=== PATIENT | male | born 1985 | race Caucasian/White ===

== ENCOUNTER 2017-12-10 05:07 | Emergency (ER) | payer BC, OTHER ==
[2017-12-10] MEDS ORDERED: DELTASONE 20 MG PO ONE (05:26)
[2017-12-10] MEDS ORDERED: TYLENOL 325 MG PO STA ×2 (05:26→05:41)
[2017-12-10] MEDS ORDERED: TYLENOL 325 MG ONE (05:33)
[2017-12-10] MEDS ORDERED: DELTASONE 20 MG ONE (05:33)
--- NOTE | 2017-12-10 05:33 | ERPHSYRPT ---
- History of Present Illness Time Seen by Provider: 12/10/17 05:20 Source: patient Exam Limitations: clinical condition Patient Subjective Stated Complaint: pt states he has a sore throat since . states he has increased pain since starting antibiotic Triage Nursing Assessment: pt alert and oriented, answers questions approp. pt ambulatory with steady gait noted, respriations nonlabored with lungs cta. redness noted to throat. tenderness to lt side of neck with light palpation. Physician History: PATIENT COMPLAINS OF BEING DIAGNOSED AND TREATED FOR STREP PHARYNGITIS WITH ANTIBIOTIC AUGMENTIN 875MG TWICE DAILY FOR 3 DAYS. STATES HIS SORETHROAT IS WORSE, PAINFUL, AND HAS LEFT EARACHE. DENIES COUGH, FEVER,CHILLS. Timing/Duration: gradual onset Severity: severe ENT Location: ear (L), throat Prearrival Treatment: prescription meds Associated Symptoms: ear pain (L), swollen glands Allergies/Adverse Reactions: No Known Drug Allergies Allergy (Verified 10/04/12 22:21) Home Medications: Amox Tr/Potass Clav. 875 mg [Augmentin 875-125 Tablet] 1 tab PO BID [History] Hx Tetanus, Diphtheria Vaccination/Date Given: Yes Hx Influenza Vaccination/Date Given: No Hx Pneumococcal Vaccination/Date Given: No Immunizations Up to Date: Yes - Review of Systems Constitutional: No Symptoms, No Fever, No Chills Eyes: No Symptoms Ears, Nose, & Throat: Ear Pain, Painful Swallowing Respiratory: No Symptoms, No Cough, No Dyspnea Cardiac: No Symptoms, No Chest Pain, No Edema, No Syncope Abdominal/Gastrointestinal: No Abdominal Pain, No Nausea, No Vomiting, No Diarrhea Genitourinary Symptoms: No Symptoms, No Dysuria Musculoskeletal: No Symptoms, No Back Pain, No Neck Pain Skin: No Rash Neurological: No Dizziness, No Focal Weakness, No Sensory Changes Psychological: No Symptoms Endocrine: No Symptoms All Other Systems: Reviewed and Negative - Past Medical History Pertinent Past Medical History: Yes Other Medical History: SPASTIC COLON - Past Surgical History Past Surgical History: No - Social History Smoking Status: Current some day smoker Exposure to second hand smoke: No Drug Use: none Patient Lives Alone: No - Nursing Vital Signs Nursing Vital Signs: Initial Vital Signs Temperature 99.7 F 12/10/17 05:12 Pulse Rate 85 12/10/17 05:12 Respiratory Rate 18 12/10/17 05:12 Blood Pressure 123/77 12/10/17 05:12 O2 Sat by Pulse Oximetry 98 12/10/17 05:12 Pain Scale Pain Intensity 10 - Physical Exam General Appearance: no apparent distress, alert, other (THERE IS NO AUDIBLE WHEEZES OR STRIDOR) Eye Exam: bilateral eye: PERRL, EOMI Ear Exam: right ear: TM red, left ear: TM normal, bilateral ear: auricle normal , canal normal Nasal Exam: normal inspection Throat Exam: pharynx normal, moist mucus membranes, pharynx swelling, tonsillar exudate Neck Exam: normal inspection, supple Cardiovascular/Respiratory Exam: normal breath sounds, regular rate/rhythm Abdominal Exam: non-tender, soft Neurologic Exam: alert, oriented x 3, sensation nml, No motor deficits Skin Exam: normal color, warm, dry SpO2 Interpretation: normal SpO2: 98 Oxygen Delivery: Room Air Ordered Tests: Medication Summary Discontinued Medications Generic Name Dose Route Start Last Admin Trade Name Freq PRN Reason Stop Dose Admin Acetaminophen 325 mg 12/10/17 05:26 12/10/17 05:48 Tylenol 325 Mg PO 12/10/17 05:27 Not Given STAT STA Acetaminophen Confirm 12/10/17 05:33 Tylenol 325 Mg Administered 12/10/17 05:34 Dose 650 mg .ROUTE .STK-MED ONE Acetaminophen 650 mg 12/10/17 05:41 12/10/17 05:43 Tylenol 325 Mg PO 12/10/17 05:42 650 mg STAT STA Administration Prednisone 60 mg 12/10/17 05:26 12/10/17 05:35 Deltasone 20 Mg PO 12/10/17 05:27 60 mg STAT ONE Administration Prednisone Confirm 12/10/17 05:33 Deltasone 20 Mg Administered 12/10/17 05:34 Dose 60 mg .ROUTE .STK-MED ONE Lab/Rad Data: Laboratory Results 12/10/17 Range/Units 05:30 Group A Strep Antibody NEGATIVE (NEGATIVE) - Progress Progress: pain not gone completely Progress Note: 12/10/17 05:33 ADMINISTERED TYLENOL 650MG AND PREDNISONE 60MG ORALLY, STREP SCREEN NEGATIVE 12/10/17 06:12 Counseled pt/family regarding: lab results, diagnosis - Departure Time of Disposition: 06:20 Departure Disposition: Home Clinical Impression: EXUDATIVE PHARYNGITIS, RIGHT OTITIS MEDIA Condition: Stable Critical Care Time: No Additional Instructions: CONTINUE ANTIBIOTIC AUGMENTIN 875MG TWICE DAILY FOR DIRECTED. PREDNISONE 20MG, 2 TABLETS DAILY FOR 4 DAYS. ALTERNATE MOTRIN 600MG EVERY OTHER 4 HOURS WITH TYLENOL NEEDED FOR PAIN OR FEVER. CONSULT YOUR PRIMARY CARE PROVIDER FOR FOLLOWUP IN 1 WEEK, Prescriptions: Prednisone 20 mg [Deltasone 20 mg] 2 tab PO DAILY #8 tablet
[2017-12-10 06:26] VITALS: BP 133/72; PULSE 78; O2SAT 96
== END 2017-12-10 06:26 | disposition home or self-care (01) ==
LOC: ED 05:07
DX: J02.9 Acute pharyngitis, unspecified (principal); H66.91 Otitis media, unspecified, right ear
CPT/HCPCS: 87651; 99283; A9270-GY